=== PATIENT | female | born 1985 | race Caucasian/White ===

== ENCOUNTER → 2022-04-20 | Outpatient (CLI) | payer OTHER ==
[~2022-04-20] MED LIST: BACTRIM DS TAB1 EACH PO; KEFLEX CAP 500500 MG PO; LODINE CAP 300300 MG PO; ROBITUSSIN AC480 ML PO; VIBRAMYCIN100 MG PO
== END ==
LOC: KOH-I 12:08
DX: M79.671 Pain in right foot (principal)
CPT/HCPCS: 73630